=== PATIENT | female | born 1960 | race Caucasian/White ===

== ENCOUNTER 2018-09-13 05:31 | Day surgery (SDC) | payer BC ==
[~2018-09-13] VITALS: Ht 157.5 cm; Wt 117.9 kg
--- NOTE | ~2018-09-13 | OP ---
PATIENT NAME: JUSTINA CHRIS MEDICAL RECORD: [id number] :64 LOCATION:D[facility] ADMISSION DATE: SURGEON: DANIS ORELLANA MD DATE OF OPERATION: 09/13/2018 PREOPERATIVE DIAGNOSIS: Raised perianal mass. POSTOPERATIVE DIAGNOSIS: Raised perianal mass. Please see dimensions below. PROCEDURE: Excisional biopsy of perianal raised mass. The mass is 3.2 x 3.2 cm. The excised defect is 6.2 x 4.0 cm. The closure was an intermediate closure. SURGEON: Danis Orellana MD COMPUTER PERIPHERAL EQUIPMENT OPERATOR: None. BLOOD LOSS: Minimal. ANESTHESIA: General. COMPLICATIONS: None. The mass is raised. It is smooth. It is fixed. 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 It is not hard, but is rather rubbery. The risks, possible complications and alternatives to procedure were explained to the patient. She elects to proceed. OPERATIVE COURSE: The patient was conveyed to the operating room electively on 09/13/2018. General anesthesia was induced by the anesthesia staff. The patient was placed in the lithotomy position. The anus and perianal area was sterilely prepped and draped. Through the use of double curvilinear incisions, I excised the defect as well as a margin of skin and subcutaneous tissue. The mass was removed in its entirety. Subcutaneous flaps were created sharply. The dimensions of the excision are listed above. The subdermis was approximated with interrupted 3-0 Vicryls. The skin was approximated with a running intracuticular 3-0 Vicryl. I then reinforced the suture line with several 3-0 Vicryl Rapide sutures in a horizontal mattress fashion. Gelfoam was applied within the anus and rectum. I examined the anus and the lower rectum. I noted no evidence of a fissure. No evidence of a fistula. The internal and external hemorrhoids were of moderate size. A combination of sterile preparation of Marcaine was used to infiltrate the perianal tissues. A topical anesthetic ointment was applied to the external hemorrhoids. The patient was then extubated and conveyed to post-anesthesia care unit where she was in stable condition. I will see her in the office in 2 weeks to review the results of the biopsies. TRANSINT:[id number] Voice Confirmation ID: [id number] DOCUMENT ID: [id number] OPERATIVE REPORT [id number] JUSTINA CHRIS, DANIS NERI at 1403 CC: [id number] DICTATION DATE: 09/13/18914 TUBE FILLER: 09/13/18 0944 REG [facility] [address] [place] [address]
[~2018-09-13 05:31] MED LIST: GLUCOPHAGE500 MG PO; LIPITOR10 MG PO; LOSARTAN-HCTZ1 EAC2 PO; MOBIC7.5 MG PO; SYMBICORT 16010.2 GM INH; ZOLOFT100 MG PO
[2018-09-13 05:54] LABS: HEMATOCRIT 39.2 % (36.0-48.0); HEMOGLOBIN 12.7 g/dL (12-16); MCH 28.6 pg (26.0-34.0); MCHC 32.4 g/dL (31.0-37.0); MCV 88.3 fL (80.0-100.0); MEAN PLATELET VOLUME 9.2 fL (7.4-10.4); RBC 4.44 10x6/uL (4.00-5.40); RDW 13.6 % (11.5-14.5); WBC 8.2 10x3/uL (4.8-10.8)
[2018-09-13 06:05] LABS: CALC OSMOLALITY 276 mosm/kg (275-300); CALCIUM 9.4 mg/dL (8.5-10.1); CARBON DIOXIDE 29.4 mmol/L (21.0-32.0); CHLORIDE - SERUM 100 mmol/L (98-107); CREATININE - SERUM 0.7 mg/dL (0.6-1.3); GLUCOSE 142 mg/dL (74-106); POTASSIUM - SERUM 3.9 mmol/L (3.5-5.1); SODIUM 138 mmol/L (136-145); UREA NITROGEN 10 mg/dL (7-18); eGFR NON AFRICAN AMERICAN > 90 mL/min (90-120)
[2018-09-13 06:43] VITALS: BP 136/86; Ht 157.5 cm; Wt 117.9 kg
== END 2018-09-13 10:55 | disposition home or self-care (01) ==
LOC: D.OPS 05:31 → D.PAN 07:30 → D.OPS 10:15 → D.PAN 10:50 → D.OPS 10:55 → D.PAN 11:50
PROVIDERS: Anesthesiology
DX: K62.89 Other specified diseases of anus and rectum (principal); K64.4 Residual hemorrhoidal skin tags; I11.0 Hypertensive heart disease with heart failure; I50.9 Heart failure, unspecified; Z87.891 Personal history of nicotine dependence